=== PATIENT | female | born 1980 ===

== ENCOUNTER → 2022-12-24 | Outpatient (CLI) | payer OTHER ==
[~2022-12-24] MED LIST: IBUP800 PO; SULTRIDS PO
[2022-12-25 15:07] LABS: HPV 16 Negative (Negative); HPV 18 Negative (Negative); HPV OTHER HR TYPES Negative (Negative)
== END ==
LOC: LAB 16:51 → LAB SHORT 16:51
PROVIDERS: Obstetrics & Gynecology
DX: Z01.419 Encounter for gynecological examination (general) (routine) without abnormal findings (principal)
CPT/HCPCS: 87624; G0145

== ENCOUNTER → 2023-05-02 | Outpatient (CLI) | payer OTHER ==
[2023-05-02 18:28] LABS: Source, Urine Clean Catch
[2023-05-02 19:25] LABS: Appearance, Urine Hazy (Clear); Bilirubin, Urine Neg (Neg); Blood, Urine Neg (Neg); Color, Urine Yellow (P-Yellow); Glucose Qualitative, Urine Neg (Neg); Ketones, Urine Neg (Neg); Leukocyte Esterase, Urine Neg (Neg); Nitrite, Urine Neg (Neg); Protein, Urine Neg (Neg); Urobilinogen, Urine NORM (Normal)
[2023-05-02 20:13] LABS: Bacteria Many /hpf; Squamous Epithelial Cells Mod /hpf (Few); White Blood Cells, Urine 0-2 /hpf (0-5)
[2023-05-02 20:15] LABS: Amorphous Light (0-Heavy)
== END ==
LOC: LAB SHORT 15:45 → LAB 15:45
PROVIDERS: Obstetrics & Gynecology
DX: O26.899 Other specified pregnancy related conditions, unspecified trimester (principal); M54.50 Low back pain, unspecified; Z3A.00 Weeks of gestation of pregnancy not specified
CPT/HCPCS: 81001; 87086

== ENCOUNTER → 2023-06-03 | Outpatient (CLI) | payer OTHER | END | disposition home or self-care (01) | LOC: LAB 16:35 → LAB SHORT 16:35 | DX: O09.513 Supervision of elderly primigravida, third trimester (principal) | CPT/HCPCS: 87081; 87150 ==

== ENCOUNTER 2023-06-23 18:55 | Inpatient (IN) | payer OTHER ==
[~2023-06-23] VITALS: Ht 165.1 cm; Wt 101.0 kg
[2023-06-23] MEDS ORDERED: PRENATAL TABLE1 EAC2 PO (19:50)
[2023-06-23 19:53] VITALS: BP 125/71
[2023-06-23 19:53] LABS: BASOPHILS ABSOLUTE AUTO 0.04 K/mm3 (0.00-0.23); BASOPHILS PERCENT AUTO 0 % (0-2); EOSINOPHILS ABSOLUTE AUTO 0.18 K/mm3 (0.00-0.68); EOSINOPHILS PERCENT AUTO 1 % (0-6); Hematocrit 35.2 % (33.0-51.0); Hemoglobin 11.7 g/dL (11.5-16.0); IMMATURE GRAN PERCENT AUTO 1 % (0-1); LYMPHOCYTES ABSOLUTE AUTO 3.54 K/mm3 (0.84-5.20); LYMPHOCYTES PERCENT AUTO 24 % (21-46); MONOCYTES ABSOLUTE AUTO 0.96 K/mm3 (0.16-1.47); MONOCYTES PERCENT AUTO 7 % (4-13); Mean Corpuscular HGB 29.3 pg (26.0-34.0); Mean Corpuscular HGB Conc 33.2 g/dL (31.5-36.5); Mean Corpuscular Volume 88 fL (80-100); Mean Platelet Volume 10.4 fL (9.1-12.4); NEUTROPHILS ABSOLUTE AUTO 9.98 K/mm3 (1.96-9.15); NEUTROPHILS PERCENT AUTO 67 % (41-73); Platelet Count 363 K/mm3 (150-400); RDW Coefficient Variation 13.7 % (11.7-14.2); RDW Standard Deviation 44.1 fL (35.1-46.3); Red Blood Cell Count 3.99 M/mm3 (3.80-5.20)
[2023-06-24] VITALS (32 sets, daily range): BP systolic 97–172; BP diastolic 55–110
--- NOTE | 2023-06-24 23:49 | NUR ---
06/24/23 [id number] Ivory Stevens PATIENT ARRIVED TO OR WITH LAZO CATHETER IN PLACE DRAINING YELLOW URINE.
[2023-06-25] VITALS (20 sets, daily range): BP systolic 112–151; BP diastolic 57–98
[2023-06-25 00:41] LABS: PCO2 Cord - Arterial 50.7 mmHg (40-50); PO2 Cord - Arterial 20.9 mmHg (16-20); pH Cord - Arterial 7.19 (7.28-7.35)
[2023-06-25 00:43] LABS: PCO2 Cord - Venous 47.5 mmHg (40-50); PO2 Cord - Venous 25.4 mmHg (28-32); pH Umbilical Cord - Venous 7.29 (7.26-7.35)
[2023-06-25 07:52] LABS: BASOPHILS ABSOLUTE AUTO 0.04 K/mm3 (0.00-0.23); BASOPHILS PERCENT AUTO 0 % (0-2); EOSINOPHILS ABSOLUTE AUTO 0.06 K/mm3 (0.00-0.68); EOSINOPHILS PERCENT AUTO 0 % (0-6); Hematocrit 28.2 % (33.0-51.0); IMMATURE GRAN ABSOLUTE AUTO 0.09 K/mm3 (0.00-0.10); IMMATURE GRAN PERCENT AUTO 0 % (0-1); LYMPHOCYTES ABSOLUTE AUTO 3.91 K/mm3 (0.84-5.20); LYMPHOCYTES PERCENT AUTO 19 % (21-46); MONOCYTES ABSOLUTE AUTO 1.42 K/mm3 (0.16-1.47); MONOCYTES PERCENT AUTO 7 % (4-13); Mean Corpuscular HGB 28.6 pg (26.0-34.0); Mean Corpuscular HGB Conc 31.9 g/dL (31.5-36.5); Mean Corpuscular Volume 90 fL (80-100); Mean Platelet Volume 10.7 fL (9.1-12.4); NEUTROPHILS ABSOLUTE AUTO 15.29 K/mm3 (1.96-9.15); NEUTROPHILS PERCENT AUTO 74 % (41-73); Platelet Count 277 K/mm3 (150-400); RDW Coefficient Variation 13.7 % (11.7-14.2); RDW Standard Deviation 44.4 fL (35.1-46.3); Red Blood Cell Count 3.15 M/mm3 (3.80-5.20); White Blood Cell Count 20.81 K/mm3 (4.00-11.30)
[2023-06-25] MEDS ORDERED: MASOPHEN500 MG PO (08:03)
--- NOTE | 2023-06-25 12:00 | NUR ---
STOOD AT SIDE OF BED AND TOLERATED WELL. PLANS TO SHOWER IN A FEW HOURS. PAIN WELL CONTROLLED WITH MEDS. REPORT TO JENNIFER EDMONDS.
--- NOTE | 2023-06-25 16:33 | NUR ---
PT AMBULATED TO THE BATHROOM AT 1600 AND WAS ABLE TO VOID.
--- NOTE | 2023-06-25 17:21 | NUR ---
PT RESTING COMFORTABLY. DENIES PAIN. TRYING TO TAKE A NAP.
[2023-06-26 00:53] VITALS: BP 113/59
[2023-06-26 05:16] VITALS: BP 114/58
[2023-06-26 08:30] VITALS: BP 115/68
[2023-06-26] MEDS ORDERED: OXAYDO5 M1 (09:39)
[2023-06-26 16:32] VITALS: BP 185/94
[2023-06-26 16:33] VITALS: BP 165/72
[2023-06-26 16:57] VITALS: BP 137/68
--- NOTE | 2023-06-26 17:33 | NUR ---
DISCHARGE PT OUT OF SHOWER AND PACKING UP ROOM. 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 PT VERBALIZES UNDERSTANDING OF DC INSTRUCTIONS AND FOLLOW UP APPOINTMENTS. ALL QUESTIONS ANSWERED. CARING FOR SELF AND BABY INDPENDANTLY WITH HELP OF FOB. FRANTZ SCANT AND INCISION C/D/I WITH BINDER ON. DC HOME STABLE AMBULATING TO CAR.
== END 2023-06-26 17:00 | disposition home or self-care (01) | DRG 787 ==
LOC: OBS 18:55 → BC 18:55 → OBS 19:06 → BC 19:07
PROVIDERS: ADMIT Obstetrics & Gynecology
PROC: 3E0P7VZ Introduction of Hormone into Female Reproductive, Via Natural or Artificial Opening (ICD-10-PCS; 2023-06-23)
PROC: 3E033VJ Introduction of Other Hormone into Peripheral Vein, Percutaneous Approach (ICD-10-PCS; 2023-06-24)
PROC: 10H07YZ Insertion of Other Device into Products of Conception, Via Natural or Artificial Opening (ICD-10-PCS; 2023-06-24)
PROC: 10D00Z1 Extraction of Products of Conception, Low, Open Approach (ICD-10-PCS; principal; 2023-06-24 22:45)
DX: O34.13 Maternal care for benign tumor of corpus uteri, third trimester (principal); O99.324 Drug use complicating childbirth; Z37.0 Single live birth; Z3A.39 39 weeks gestation of pregnancy; O76 Abnormality in fetal heart rate and rhythm complicating labor and delivery; O99.334 Smoking (tobacco) complicating childbirth; F17.200 Nicotine dependence, unspecified, uncomplicated; F12.90 Cannabis use, unspecified, uncomplicated
CPT/HCPCS: 36415; 51702; 82803; 85025; 86850; 86900; 86901; 86923; A9270; J0456; J0690; J1885; J2001; J2405; J2590; J3010; J7050; J7120